=== PATIENT | male | born 1955 | race Caucasian/White ===

== ENCOUNTER 2021-03-12 14:20 | Outpatient (REF) | payer MEDICARE, SELFPAY | END 2021-03-12 14:21 | disposition home or self-care (01) | LOC: HO.BBR 14:20 | PROVIDERS: Visit Provider Internal Medicine | DX: Z13.89 Encounter for screening for other disorder (principal) ==

== ENCOUNTER 2022-05-07 15:08 | Outpatient (REF) | payer MEDICARE, SELFPAY | END 2022-05-07 15:09 | disposition home or self-care (01) | LOC: HO.BBR 15:08 | PROVIDERS: Visit Provider Internal Medicine | DX: Z13.89 Encounter for screening for other disorder (principal) ==

== ENCOUNTER 2023-03-26 10:01 | Outpatient (REF) | payer MEDICARE, SELFPAY | END 2023-03-26 10:02 | disposition home or self-care (01) | LOC: HO.BBR 10:01 | PROVIDERS: PCP Pediatrics; Visit Provider Internal Medicine | DX: Z13.89 Encounter for screening for other disorder (principal) ==

== ENCOUNTER 2023-11-26 10:03 | Outpatient (REF) | payer MEDICARE, SELFPAY | END 2023-11-26 10:04 | disposition home or self-care (01) | LOC: HO.BBR 10:03 | PROVIDERS: PCP Pediatrics; Visit Provider Internal Medicine | DX: Z13.89 Encounter for screening for other disorder (principal) ==

== ENCOUNTER 2024-05-26 11:11 | Outpatient (REF) | payer MEDICARE, SELFPAY | END 2024-05-26 11:12 | disposition home or self-care (01) | LOC: HO.BBR 11:11 | PROVIDERS: PCP Pediatrics; Visit Provider Internal Medicine | DX: Z13.89 Encounter for screening for other disorder (principal) ==

== ENCOUNTER 2024-09-27 10:55 | Outpatient (REF) | payer MEDICARE, SELFPAY | END 2024-09-27 10:56 | disposition home or self-care (01) | LOC: HO.BBR 10:55 | PROVIDERS: PCP Pediatrics; Visit Provider Internal Medicine | DX: Z13.89 Encounter for screening for other disorder (principal) ==

== ENCOUNTER 2025-01-23 11:07 | Outpatient (REF) | payer MEDICARE, SELFPAY ==
--- OUTSIDE RECORDS SUMMARY | 2025-01-23 13:45 | XMS_ITS | Clinical Summary ---
Author Organization [facility] Address [address] [place] [id number] Care Team Providers Care Photographic Enlarger Operator Name Role Phone Lupillo Alfonso MD Primary Care Provider [phone] Allergies Active Allergy Reactions Criticality Noted Date Comments Oxycodone 03/27/2020 Anything OXY Medications Medication Sig Dispensed Refills Start Date End Date Status FAMOTIDINE PO Take 40 mg by mouth 6 (six) times a day. 0 Active Active Problems No known active problems Social History Tobacco Use Types Packs/Day Years Used Date Smoking Tobacco: Never Smokeless Tobacco: Never Alcohol Use Standard Drinks/Week Comments No 0 (1 standard drink = 0.6 oz pur e alcohol) Sex and Gender Information Value Date Recorded Sex Assigned at Not on file Gender Identity Not on file Sexual Orientation Not on file Job Start Date Occupation Industry Not on file Not on file Not on file Last Filed Vital Signs Vital Sign Reading Time Taken Comments Blood Pressure 152/68 05/02/2024 2:42 PM EDT Pulse 74 05/02/2024 2:42 PM EDT Temperature 36.2 ??C (97.2 ??F) 05/02/2024 2:42 PM ED T Respiratory Rate - - Oxygen Saturation 99% 05/02/2024 2:42 PM EDT Inhaled Oxygen Concentration - - Weight 134.4 kg (296 lb 6.4 oz) 05/02/2024 2:42 PM EDT Height 193 cm (6' 4 ) 05/03/2023 2:29 PM EDT Body Mass Index 36.08 05/03/2023 2:29 PM EDT Plan of Treatment Health Maintenance Due Date Last Done Comments Hepatitis C Screening 1954 Depression Screening 1966 Preventative Health Evaluation 1972 Colon Cancer Screening (Colonoscopy) 1999 Shingrix-Zoster Vaccine (1 of 2) 2004 Fall Risk Assessment 2019 COVID-19 Vaccine (3 season) 2024 02/26/2021, 02/05/2021 Influenza Vaccine (#1) 2024 3, 10/22/2022, 10/20/2021, Additional history exists RSV Adult > 60+ Yrs or (1 - 1-dose 75+ series) 2029 DTap / Tdap / Td (3 - Td or Tdap) 02/10/2033 02/10/2023, 12/08/2010 Pneumococcal Vaccine Completed 12/15/2023 Hepatitis B Vaccines Aged Out No long er eligible based on patient's age to complete this topic RSV Ped < 20 months Aged Out No longe r eligible based on patient's age to complete this topic Care Teams Photographic Enlarger Operator Relationship Specialty Start Date End Date Lupillo Alfonso MD PCP - General Forensic Investigator 03/27/20
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
== END 2025-01-23 11:08 | disposition home or self-care (01) ==
LOC: HO.BBR 11:07
PROVIDERS: Visit Provider Internal Medicine
DX: Z13.89 Encounter for screening for other disorder (principal)

== ENCOUNTER 2025-05-09 14:06 | Outpatient (REF) | payer MEDICARE, SELFPAY ==
--- OUTSIDE RECORDS SUMMARY | 2025-05-09 14:48 | XMS_ITS | Clinical Summary ---
Author Organization [facility] Address [address] [place] [phone] Phone Care Team Providers Care Tube Sizer Operator Name Role Phone Princess Alfonso MD Primary Care Provider Allergies Active Allergy Reactions Criticality Noted Date Comments Oxycodone Itching 11/10/2010 Anything OXY Medications IBU 600 mg tablet Take 1 tablet (600 mg total) by mouth every 6 (six) hours if needed. for pain Active fluticasone furoate-vilante roL (BREO ELLIPTA) 100-25 mcg/dose inhaler Inhale by mouth 1 (one) time each day. Active albuterol HFA (PROAIR HFA ; PROVENTIL HFA ; VENTOLIN HFA) 90 mcg/actuation inhaler inhale two puffs into the lungs every four to six hours as needed Active amoxicillin (AMOXIL) 500 mg capsule take one capsule by mouth three times a day until gone 4 Active clindamycin (CLEOCIN) 300 mg capsule take one capsule by mouth every 8 hours until gone 5 Active ketorolac (ACULAR) 0.5 % ophthalmic solution 5 Active polyethylene glycol (Golytely) 236-22.74-6.74 -5.86 gram solution See Instructions, Per instructions from GI., # 4,000 mL, 0 Refills, Maintenance, 11/22/24 3:44:00 PM EST, [facility], Partial fill upon patient request if the prescription is for a schedule II opioid drug., Per instructions from GI., 193.04, cm, 02/12/25 14:37:00 EST, Height 5 Active Trelegy Ellipta 100-62.5-25 mcg inhaler INHALE ONE PUFF INTO THE LUNGS AT THE SAME TIME EVERY DAY 5 Active brimonidine (ALPHAGAN) 0.2 % ophthalmic solution INSTILL 1 DROP INTO THE RIGHT EYE THREE TIMES A DAY 5 Active Active Problems Problem Noted Date Diagnosed Date COPD (chronic obstructive pu lmonary disease) ([facility] V24, [facility] V28) 03/08/2025 Colon cancer screening 02/15/2025 Overview (02/15/2025): 03/04. Poor prep---6 mo Obesity 11/10/2010 Encounters Date Type Department Care Team Description 05/01/2025 Telephone [facility] Hematology Oncology [address] [place] [phone] Matt Baptiste MD 02/09/2025 12:31 PM EDT - 02/09/2025 11:59 PM EDT Hospital Encounter [facility] Pulmonary [address] [place] [phone] COPD (chronic obstructive pulmonary disease) ([facility] V24, [facility] V28) Discharge Disposition: Home or Self Care from Last 3 Months Immunizations Name Administration Dates Next Due Influenza Quadravalent, 0.5m l (Fluzone High-dose) 65yo and older 07/17/2020 Influenza Quadravalent, MDCK , 0.5ml, preservative free (Flucelvax) 6mo and older 10/21/2017 Influenza Quadrivalent, with preservative (Fluzone; Afluria) 6mo and older 09/18/2019 Influenza trivalent, 0.5mL ( Fluzone High-dose) 65yo and older 06/16/2023,10/22/2022,10/20/2021 Influenza trivalent, with preservative (Fluzone; Afluria) 6mo and older 09/09/2016,07/31/2014,07/26/2013,2011 Influenza, Unspecified 10/21/2017 Pfizer SARS-CoV-2 COVID-19, mRNA, LNP-S, preservative free 02/26/2021,02/05/2021 Pneumococcal conjugate 20 va lent (Prevnar 20, PCV 20) 2mo and older 12/15/2023,08/07/2023 Tdap Tetanus diptheria acell ular pertussis (Boostrix; Adacel) 7yo and older 02/10/2023,12/08/2010 Surgical History Surgery Date Site/Laterality Comments KNEE [...] Date Smoking Tobacco: Never Smokeless Tobacco: Never Tobacco Cessation:Counseling Given: Not Answered Alcohol Use Standard Drinks/Week Comments Not Currently 0 (1 standard drink = 0.6 oz pur e alcohol) Sex and Gender Information Value Date Recorded Sex Assigned at Not on file Legal Sex Male 1:36 PM EST Gender Identity Not on file Sexual Orientation Not on file Obstetrics History Last Filed Vital Signs Vital Sign Reading Time Taken Comments Blood Pressure 131/68 02/01/2025 10:05 AM EDT Pulse 71 02/01/2025 10:05 AM EDT Temperature 35.8 C (96.4 F) 02/01/2025 10:05 AM EDT Respiratory Rate 16 02/01/2025 10:05 AM EDT Oxygen Saturation 99% 01/31/2025 1:49 PM EDT Inhaled Oxygen Concentration - - Weight 122 kg (268 lb 12.8 oz) 02/01/2025 10:05 AM EDT Height 193 cm (6' 3.98 ) 02/01/2025 10:05 AM EDT Body Mass Index 32.73 02/01/2025 10:05 AM EDT Plan of Treatment Upcoming Encounters Date Type Department Care Team (Late st Contact Info) Description 05/14/2025 3:15 PM EDT Office Visit Pulmonolgy [facility] [address] [phone] Linda Bautista MD [address] [phone] 05/31/2025 10:30 AM EDT Office Visit Adult Medicine [facility] [address] [place] [phone] Princess Alfonso MD [address] [place] [address] 12/11/2025 1:45 PM EST Office Visit [facility] Hematology Oncology [address] [place] [phone] Matt Baptiste MD [address] [place] [address] Health Maintenance Due Date Last Done Comments Zoster Vaccines (1 of 2) 2004 RSV Immunization Adult Patients (1 - Risk 60-74 years 1-dose series) 2014 Cholesterol Screening (Lipid Panel) 09/18/2022 Colorectal Cancer Screening: Stool Based Tests (FOBT/FIT) 09/18/2022 Falls Risk Assessment 09/18/2022 Hepatitis C Screening 09/18/2022 Medicare Annual Wellness Visit 09/18/2022 Social Influencers of Health Screening 09/18/2022 COVID-19 Vaccine ( season) 2024 07/28/2023, 10/22/2022, 11/21/2021, Additional history exists Depression Screening 10/11/2024 Influenza Vaccine (#1) 2025 , 10/22/2022, 10/20/2021, Additional history exists DTaP,Tdap,and Td Vaccines (3 - Td or Tdap) 02/10/2033 02/10/2023, 12/08/2010 Pneumococcal Vaccine: 50+ Years Completed 12/15/2023, 08/07/2023 Colorectal Cancer Screening: Colonoscopy Discontinued 02/13/2025 HIB Vaccines Aged Out No longer eligi [...] on patient's age to complete this topic Procedures Procedure Name Priority Date/Time Associated Diagnosis Comments EXTERNAL COLONOSCOPY REPORT 02/13/2025 HC SPIROMETRY BRONCHODILATION RESPONSIVENESS PRE/POST BRONCHODILATOR ADMINISTRATION Routine 02/09/2025 1:18 PM EDT COPD (chronic obstructive pulmonary disease) ([facility] V24, [facility] V28) from Last 3 Months Results * External Colonoscopy Report (02/13/2025) Anatomical Region Laterality Modality Endoscopy us Provider [facility]~PROCEDURE ORDERABLES Final Result * Pulmonary function testing: Carbon Monoxide Diffusing Capacity, Nitrogen Wash Out, Spirometry with Bronchodilator (02/09/2025 1:18 PM EDT) Narrative Jo-Ann Broussard MD - 02/09/2025 9:39 PM EDT FEV1/FVC 84%. FEV1 3.50 at 98%. FVC 88%. No bronchodilator response. TLC 71% w/ Z-score of -3.40. RV 63%. DLCO 118%. No obstruction. Mild restriction. No decrease in diffusion. Findings consistent with mild restrictive lung disease. Linda Bautista MD PFT ORDERABLES Final Result from Last 3 Months Insurance MEDICARE MEDICAID - [place] Care Teams Tube Sizer Operator Relationship Specialty Start Date End Date Princess Alfonso MD [address] [place] [address] PCP - General Internal Medicine 08/09/18
--- OUTSIDE RECORDS SUMMARY | 2025-05-09 14:48 | XMS_ITS | Clinical Summary ---
Author Organization [facility] Address [address] [place] [address] Care Team Providers Care Game Manager Name Role Phone Lupillo lAfonso MD Primary Care Provider [phone] Allergies Active Allergy Reactions Criticality Noted Date [...] 74 05/02/2024 2:42 PM EDT Temperature 36.2 C (97.2 F) 05/02/2024 2:42 PM EDT Respiratory Rate - - Oxygen Saturation 99% [...] 2004 Fall Risk Assessment 2019 COVID-19 Vaccine ( season) 2024 02/26/2021, 02/05/2021 Influenza Vaccine (#1) 2025 , 10/22/2022, 10/20/2021, Additional history exists RSV Adult [...] age to complete this topic Care Teams Game Manager Relationship Specialty Start Date End Date Lupillo Alfonso MD PCP - General Livestock Commission Agent 03/27/20
--- OUTSIDE RECORDS SUMMARY | 2025-05-09 14:48 | XMS_ITS ---
Author Name [facility] Organization Unknown Care Team Organization Name Specialty Phone Email Start Date End Da te [facility] Kelly Correa Primary Care 12/16/2022 024 [facility] PAT WOLF Primary Care 08/18/20222023
== END 2025-05-09 14:07 | disposition home or self-care (01) ==
LOC: HO.BBR 14:06
PROVIDERS: PCP Pediatrics; Visit Provider Internal Medicine
DX: Z13.89 Encounter for screening for other disorder (principal)